=== PATIENT | male | born 1995 | race Caucasian/White ===

== ENCOUNTER 2016-07-05 14:17 | Emergency (ER) | payer BC ==
[2016-07-05 14:28] VITALS: BP 120/64
[2016-07-05] MEDS ORDERED: KETOROLAC TROMETHAMINE 60 MG/2 ML VIAL IM ONE ×2 (15:23→15:47)
--- NOTE | 2016-07-05 15:37 | ERNOTE ---
Back Pain ER HPI Date of Service: 07/05/16 Presenting Symptoms: injury/pain to back Time Seen by Provider: 07/05/16 15:10 Source: patient Exam Limitations: no limitations Immunizations: IMMUNIZATION HX Immunizations Up to Date Yes History of Influenza Vaccine Yes Hx Pneumococcal Vaccination No Allergies/Adverse Reactions: Allergies No Known Allergies Allergy (Verified 07/05/16 14:31) Home Medications: HOME MEDICATIONS Cyclobenzaprine HCl [Flexeril] 10 mg PO TID PRN #30 tab 07/05/16 [Last Taken Unknown] Meloxicam 7.5 mg PO DAILY #10 tablet 07/05/16 [Last Taken Unknown] traMADol HCL [Ultram] 50 mg PO Q6H PRN #14 tablet 07/05/16 [Last Taken Unknown] Narrative: patient presents with left lower back pain, as any chest pain abdominal pain. No numbness or tingling sensation in the lower extremities. No paresthesia. No radicular radiculopathy. no weakness and fully ambulatory. The power in the upper and lower extremities. No loss of bowel or bladder control. Date (Duration): 07/05/16 Time (Timing): 10:30 Timing: Reports: constant Quality/Severity: Reports: mild Location of pain: Reports: lower back Activities at Onset: Reports: activity Recent Injury?: Reports: possibly Possible Precipitating Factor: Reports: turning/bending Modifying Factors - (Improves): Reports: movement flexion Modifying Factors - (Worsens): Reports: movement to right, movement to left, movement flexion Associated Symptoms: Denies: fever/chills, sweating, constipation/incontinence, nausea/vomiting, problems urinating, difficulty walking, lightheadedness, numbess/weakness in legs Review of Systems - Review of Systems Constitutional: Present: no symptoms reported EYE: Absent: double vision Respiratory: Present: no symptoms reported. Absent: shortness of breath Cardiology: Absent: chest pain, palpitations, syncope Gastrointestinal/Abdominal: Present: no symptoms reported Genitourinary: Present: no symptoms reported Musculoskeletal: Present: no symptoms reported Skin: Present: no symptoms reported Neurological: Absent: anxiety, depressed, headache, dizziness/light-headedness, weakness, numbness, tingling All Other Systems: All systems neg except as marked - Patient's Past Medical History Patient History - Medical: No pertinent hx Patient History - Cancer: No Hx of Cancer Patient History - Surgical Procedures: Ear Tubes - Social History Living Situations: home Smoking Status: Current some day smoker Have you smoked in the past 12 months: Yes Alcohol Use: occasionally Drug Use: none Physical Exam - Physical Exam General Appearance: Present: wd/wn, alert, no apparent distress Ears, Nose, Throat: Present: normal ENT inspection, normal pharynx Neck: Present: normal inspection, nontender Respiratory: Present: no respiratory distress, normal breath sounds, no accessory muscle use, chest nontender, lungs clear Cardiovascular/Chest: Present: regular rate, rhythm, no murmur, normal peripheral pulses Gastrointestinal/Abdominal: Present: normal bowel sounds, nontender, nondistended, soft, no organomegaly Back Exam: Present: normal inspection, normal range of motion, no CVA tenderness , no vertebral tenderness. Absent: decreased range of motion, muscle spasm - aft lower lumbar paraspinal area tenderness. Leg test negative good power in the lower extremities no neuro focal deficit Extremity Exam: Present: normal inspection, non-tender, normal range of motion, pelvis stable. Absent: decreased range of motion, calf tenderness, joint swelling Neurological Exam: Present: alert, oriented Skin Exam: Present: normal color, warm/dry Lymphatic Exam: Present: no adenopathy ED Progress - Vital Signs Patient's Vital Signs:: I have reviewed the patient's vital signs. Vital Signs: Vital Signs 07/05/16 14:24 Temperature 35.3 C L Pulse Rate 78 Respiratory 16 Rate Blood Pressure 120/64 O2 Sat by Pulse 100 Oximetry - Progress/Reassessment Chief Complaint: Back Pain Progress:: Unchanged - Transfer of Care Expected Disposition: Discharge - he defers on any imaging tests or x-rays. Additional Notes: It will be placed on anti-inflammatories and pain meds and muscle relaxants. Back to the ER with any change or worsening symptoms. warning signs and symptoms reviewed with the patient and return back to the ER with good understanding Family doctor in 2-3 days. Departure Clinical Impression: Muscle spasm of back - Departure Disposition: Home self-care Condition: Good Instructions: Back Pain, Adult Referrals: Raphael Melendez MD [Primary Care Provider] - Prescriptions: Cyclobenzaprine HCl [Flexeril] 10 mg PO TID PRN #30 tab PRN Reason: MUSCLE SPASMS Meloxicam 7.5 mg PO DAILY #10 tablet traMADol HCL [Ultram] 50 mg PO Q6H PRN #14 tablet PRN Reason: Pain
== END 2016-07-05 15:56 | disposition home or self-care (01) ==
LOC: ER 14:17
DX: M62.830 Muscle spasm of back (principal); F17.210 Nicotine dependence, cigarettes, uncomplicated